=== PATIENT | female | born 1975 | race African-American/Black ===

== ENCOUNTER 2017-09-28 22:45 | Observation (INO) ==
[2017-09-29 00:06] LABS: Troponin I Only 0.187 NG/ML (0.00-0.045)
[2017-09-29] MEDS ORDERED: ONDANSETRON 4 MG/2 ML VIAL IV PRN (03:03)
[2017-09-29] MEDS ORDERED: MORPHINE 2 MG/1 ML SYRINGE IV PRN (03:03)
[2017-09-29 05:39] LABS: Basophils % 0.4 % (0.0-0.8); Eosinophils # 0.1 10*3/uL (0.0-0.87); Hematocrit 36.4 VOL% (35.7-47.0); Hemoglobin 12.5 GM/DL (12.0-16.0); Immature Granulocytes % 0.6 %; Immature Granulocytes Absolute 0.03 #; Lymphocytes # 2.3 10*3/uL (1.4-4.0); Lymphocytes % 42.9 % (21.3-54.2); Mean Corpuscular HGB Conc 34.3 GM/DL (32-36); Mean Corpuscular Hemoglobin 29 PG (27-34); Mean Corpuscular Volume 85.2 FL (87-102); Mean Platelet Volume 10.1 FL (9.6-12.0); Monocytes # 0.3 10*3/uL (0.11-0.8); Monocytes % 5.7 % (1.7-12.7); Neutrophils # 2.6 10*3/uL (1.4-7.4); Neutrophils % 48.4 % (38.7-73.9); Platelet Count 226 T/CUMM (130-400); Red Blood Count 4.27 MC/CUMM (3.8-5.5); White Blood Count 5.4 T/CUMM (4-12)
[2017-09-29 06:12] LABS: Albumin 3.4 G/DL (3.4-5.0); Calcium 8.8 MG/DL (8.5-10.1); Magnesium 1.7 MG/DL (1.8-2.4); Osmolality,Calculated 277.7 MOS/KG (273-304); Potassium 3.5 MMOL/L (3.5-5.1); Risk Ratio 6.19; Total Protein 7.1 G/DL (6.4-8.3); VLDL CHOLESTEROL 66.8 MG/DL
[2017-09-29] MEDS ORDERED: MAGNESIUM SULF RIDER 4 GM in PREMIX 1 EACH IV PRN (08:00)
[2017-09-29] MEDS ORDERED: MAGNESIUM SULF RIDER 2 GM in PREMIX 1 EACH IV PRN ×2 (08:00→08:38)
[2017-09-29] MEDS ORDERED: POTASSIUM CHLORIDE RIDER 10 MEQ in PREMIX 1 EACH IV PRN (08:38)
[2017-09-29] MEDS: DOCUSATE SODIUM 100 MG CAPSULE PO SCH ×3 (09:03→21:23)
[2017-09-29] MEDS: ASPIRIN EC 81 MG TABLET PO SCH (09:03)
[2017-09-29] MEDS: amLODIPine 5 MG TABLET PO SCH (09:03)
[2017-09-29] MEDS: NITROGLYCERIN 2% OINT 1 INCH/GM PACK TOP SCH ×2 (09:03→22:35)
[2017-09-29] MEDS: PANTOPRAZOLE 40 MG TABLET PO SCH ×2 (09:04→09:40)
[2017-09-29 09:27] LABS: PT Patient Result 10.7 SECS
[2017-09-29] MEDS: SODIUM CHLORIDE 0.45% 1,000 ML IV SCH ×2 (09:40→22:35)
[2017-09-29 10:00] LABS: Troponin I Only 0.197 NG/ML (0.00-0.045)
[2017-09-29] MEDS ORDERED: diphenhydrAMINE CAP 25 MG CAPSULE PO ONE (11:30)
[2017-09-29] MEDS ORDERED: DIAZEPAM 5 MG TABLET PO ONE (11:30)
[2017-09-29] MEDS ORDERED: VERAPAMIL 5 MG/2 ML VIAL ONE (14:50)
[2017-09-29] MEDS ORDERED: NITROGLYCERIN DRIP 50 MG/250 ML BOTTLE IV ONE (14:50)
[2017-09-29] MEDS ORDERED: MIDAZOLAM 2 MG/2 ML VIAL ONE (14:50)
[2017-09-29] MEDS ORDERED: LIDOCAINE 1% 20 ML VIAL ONE (14:50)
[2017-09-29] MEDS ORDERED: fentaNYL 100 MCG/2 ML VIAL ONE (14:50)
[2017-09-29] MEDS ORDERED: ENOXAPARIN 40 MG/0.4 ML SYRINGE SUBCUT SCH (21:00)
[2017-09-29] MEDS ORDERED: ATORVASTATIN 20 MG TABLET PO SCH (21:00)
[2017-09-30 06:48] LABS: Basophils % 0.3 % (0.0-0.8); Eosinophils # 0.2 10*3/uL (0.0-0.87); Eosinophils % 2.9 % (0.00-10.9); Hematocrit 36.3 VOL% (35.7-47.0); Hemoglobin 12.2 GM/DL (12.0-16.0); Immature Granulocytes % 0.2 %; Immature Granulocytes Absolute 0.01 #; Lymphocytes # 1.6 10*3/uL (1.4-4.0); Lymphocytes % 27.5 % (21.3-54.2); Mean Corpuscular HGB Conc 33.6 GM/DL (32-36); Mean Corpuscular Hemoglobin 29 PG (27-34); Mean Corpuscular Volume 85.8 FL (87-102); Mean Platelet Volume 9.6 FL (9.6-12.0); Monocytes # 0.5 10*3/uL (0.11-0.8); Monocytes % 8.3 % (1.7-12.7); Neutrophils # 3.6 10*3/uL (1.4-7.4); Neutrophils % 60.8 % (38.7-73.9); Platelet Count 206 T/CUMM (130-400); Red Blood Count 4.23 MC/CUMM (3.8-5.5); Red Cell Distribution Width 13.8 % (9.3-17.3); White Blood Count 5.9 T/CUMM (4-12)
[2017-09-30] MEDS: SODIUM CHLORIDE 0.45% 1,000 ML IV SCH (06:58)
[2017-09-30 07:15] LABS: Magnesium 2.2 MG/DL (1.8-2.4); Osmolality,Calculated 274.7 MOS/KG (273-304)
[2017-09-30] MEDS: ASPIRIN EC 81 MG TABLET PO SCH (09:46)
[2017-09-30] MEDS: DOCUSATE SODIUM 100 MG CAPSULE PO SCH (09:46)
[2017-09-30] MEDS: PANTOPRAZOLE 40 MG TABLET PO SCH (09:46)
[2017-09-30] MEDS: amLODIPine 5 MG TABLET PO SCH (09:46)
[2017-09-30 11:36] VITALS: BP 136/83
== END 2017-09-30 13:58 | disposition home or self-care (01) ==
LOC: EDUNIT# → EDBD → N.ED 22:45 → N.EDINP 22:45 → SUATTDRO 09-29 01:52 → N.2E 09-29 02:40
PROVIDERS: ADMIT Internal Medicine; ATTEND Pediatrics
PROC: CLCCHCL (ICD-10-PCS; 2017-09-29 15:15)